=== PATIENT | female | born 1970 | race Caucasian/White ===

== ENCOUNTER 2020-10-23 14:08 | Emergency (ER) | payer SELFPAY ==
[~2020-10-23 14:08] MED LIST: CIPRO500 MG PO; DIFLUCAN100 MG PO; ENDOCET 5-3251 EACH PO; FLOMAX 0.4 MG0.4 MG PO; HYDROCODON-ACE1 EAC4 PO; LEVOFLOXACIN750 MG PO; LISINOPRIL5 MG PO; MULTIVITAMIN1 EACH PO; PERCOCET 5-3251 EACH PO; PHENERGAN 25 MG25 M1 PO; ULTRAM50 MG PO; VICODIN HP 10-1 EACH PO; XANAX0.5 MG PO; ZOFRAN ODT 4 MG4 MG PO; ZOFRAN ODT 4 MG4 MG SL; ZOFRAN4 MG PO
[2020-10-23 18:13] LABS: HEMOGLOBIN 13.3 gm/dl (12.3-15.3); RED BLOOD COUNT 4.18 M/UL (4.00-5.10); WHITE BLOOD COUNT 10.7 K/UL (4.5-11.0)
[2020-10-23 18:34] LABS: BUN/CREATININE RATIO 17 (0-10)
[2020-10-24] MEDS ORDERED: CEPHALEXIN250 MG PO (02:37)
== END 2020-10-24 02:40 | disposition home or self-care (01) ==
LOC: ER1 14:08
PROVIDERS: Physician Assistant
DX: B34.9 Viral infection, unspecified (principal); R00.0 Tachycardia, unspecified; N39.0 Urinary tract infection, site not specified; Z20.822 Contact with and (suspected) exposure to COVID-19; I10 Essential (primary) hypertension
CPT/HCPCS: 71045; 80053; 81001; 83605; 85025; 85379; 87040; 87081; 87880; 93005; 96374; 99285; J0696; J7040; Q9967; U0002

== ENCOUNTER 2021-04-13 12:24 | Emergency (ER) | payer MEDICAID ==
[~2021-04-13 12:24] MED LIST changes: +CEPHALEXIN250 MG PO
[2021-04-13 13:36] LABS: HEMOGLOBIN 12.4 gm/dl (12.3-15.3); RED BLOOD COUNT 3.97 M/UL (4.00-5.10); WHITE BLOOD COUNT 8.3 K/UL (4.5-11.0)
[2021-04-13] MEDS ORDERED: FLOMAX 0.4 MG0.4 MG PO (15:49)
[2021-04-13] MEDS ORDERED: HYDROCODONE-AC1 EACH PO (15:50)
[2021-04-13] MEDS ORDERED: OMNICEF 300 MG300 MG PO (16:08)
== END 2021-04-13 17:03 | disposition home or self-care (01) ==
LOC: ER1 12:24
PROVIDERS: Nurse Practitioner
DX: N13.6 Pyonephrosis (principal); Z88.8 Allergy status to other drugs, medicaments and biological substances
CPT/HCPCS: 80048; 81001; 85025; 87086; 96374; 96375; 96376; 99284; J0696; J1170; J1885; J2405; J7030

== ENCOUNTER 2021-04-15 06:10 | Emergency (ER) | payer OTHER ==
[~2021-04-15 06:10] MED LIST changes: +HYDROCODONE-AC1 EACH PO; +OMNICEF 300 MG300 MG PO
[2021-04-15 07:12] LABS: HEMOGLOBIN 12.9 gm/dl (12.3-15.3); RED BLOOD COUNT 4.01 M/UL (4.00-5.10); WHITE BLOOD COUNT 9.6 K/UL (4.5-11.0)
== END 2021-04-15 13:25 | disposition short-term general hospital (02) ==
LOC: ER1 06:10
PROVIDERS: Family Medicine
DX: N13.6 Pyonephrosis (principal); Z87.442 Personal history of urinary calculi; Z20.822 Contact with and (suspected) exposure to COVID-19
CPT/HCPCS: 80053; 81001; 83690; 85025; 87086; 96374; 96375; 96376; 99284; J0696; J1170; J1885; J2405; U0002

== ENCOUNTER 2021-09-06 07:34 | Emergency (ER) | payer MEDICAID ==
[2021-09-06 08:20] LABS: HEMOGLOBIN 12.4 gm/dl (12.3-15.3); RED BLOOD COUNT 3.97 M/UL (4.00-5.10); WHITE BLOOD COUNT 10.5 K/UL (4.5-11.0)
[2021-09-06 08:58] LABS: BUN/CREATININE RATIO 20 (0-10)
[2021-09-06] MEDS ORDERED: TORADOL 10 MG T10 MG PO (10:15)
[2021-09-06] MEDS ORDERED: OMNICEF 300 MG300 MG PO (10:15)
[2021-09-06] MEDS ORDERED: ZOFRAN 4 MG TAB4 MG PO (10:15)
== END 2021-09-06 10:26 | disposition home or self-care (01) ==
LOC: ER1 07:34
PROVIDERS: Physician Assistant Medical
DX: N12 Tubulo-interstitial nephritis, not specified as acute or chronic (principal); Z87.442 Personal history of urinary calculi; Z90.710 Acquired absence of both cervix and uterus; Z88.8 Allergy status to other drugs, medicaments and biological substances
CPT/HCPCS: 80053; 81001; 85025; 96374; 96375; 96376; 99284; J1885; J2270; J2405